=== PATIENT | female | born 1945 | race Caucasian/White ===

== ENCOUNTER 2017-03-11 14:17 | Inpatient (IN) | payer OTHER ==
[~2017-03-11] VITALS: Ht 167.6 cm; Wt 108.4 kg
--- NOTE | ~2017-03-11 | HC ---
[facility] [address] CONSULTATION Name: EVER YANES Room #: 410-P ADM IN M.R.#: [id number] Admission: 03/11/17 Attend Phys: Steve Matias MD Discharge: Date of : 49 Report #: [id number] THIS REPORT FOR: //name// CC: Steve Valdez DATE OF SERVICE: 03/12/2017 CHIEF COMPLAINT: Left tibia and fibula fracture. HISTORY OF PRESENT ILLNESS: This independent 72-year-old female fell at home when she twisted awkwardly injuring the left leg. She sustained no other injuries. She had no loss of consciousness. X-rays here reveal evidence of a mildly comminuted fracture involving the proximal tibia and fibula. The primary fracture is relatively transverse in the metaphyseal region, but there is extension vertically up into the joint with minimal displacement. At the time of my evaluation, she is alert and oriented and reasonably comfortable with the left leg well supported in a splint. She denies any other areas of injury. She states the fall occurred when she simply became slightly dizzy and lost her balance. She did not lose consciousness. She has not had any other similar problems in the past. She has no other ongoing symptoms at this point. Objectively, she has good movement of the neck and back without discomfort. The upper extremities reveal good movement and strength in both the right and left arm without discomfort. There is no evidence of injury in the upper extremities. The right lower extremity reveals good movement at the hip, knee and ankle without discomfort. The left lower extremity is well supported in a long leg splint. There is discomfort about the knee and mid leg consistent with her tibia fracture. She seems to have a normal neurologic and vascular status. She denies any discomfort about the left hip. X-rays of the left femur and hip reveal no obvious fractures involving the hip nor the left femur. X-rays of the left tibia reveal a comminuted and displaced fracture of the tibia and fibula at the lower metaphyseal region. This extends proximally with a vertical fracture line, which extends up into the mid portion of the proximal tibia. There is very minimal displacement at the articular surface. I have had a lengthy discussion with the patient and reviewed treatment options including nonsurgical management with cast protection or surgical repair with either plate and screw fixation or intramedullary mark. The primary transverse fracture in the lower metaphyseal region might be manageable with a mark fixation; however, I am concerned with the nondisplaced comminution extending vertically all the way up to the joint, although it is not displaced at this point, I think mark placement would stress this area significantly and might result in fracture displacement and loss of fixation. Consequently, I think the [address] [address] CONSULTATION Name: EVER YANES Room #: 410-P [facility] IN M.R.#: [id number] Admission: 03/11/17 Attend Phys: Steve Matias MD Discharge: Date of : 49 Report #: [id number] better option would be a proximal locking fixation plate, which would allow secure fixation of the proximal tibia and also fixation across the fracture site. We have discussed the potential risks and benefits. She seems to understand well and wishes to go ahead with the surgery. Pending medical clearance and OR availability, I think we may be able to proceed on 03/13. We will press ahead with that plan for ORIF left tibia fracture on 03/13. <ELECTRONICALLY SIGNED> By: Rell Bowles MD 03/13/17 0719 1014 1231 Rell Bowles MD /nt
--- NOTE | ~2017-03-11 | O ---
[facility] [place] [address] [place] [address] OPERATIVE REPORT Name: EVER YANES Room #: 410-P ADM IN M.R.#: [id number] Admission: 03/11/17 Attend Phys: Steve Matias MD Discharge: Date of : 49 Report #: [id number] THIS REPORT FOR: //name// CC: Steve Mcclainon Courtney DATE OF SERVICE: 03/13/2017 PREOPERATIVE DIAGNOSIS: Left proximal tibia fracture. POSTOPERATIVE DIAGNOSIS: Left proximal tibia fracture. PROCEDURE: Open reduction internal fixation of left proximal tibia fracture. SURGEON: Rell Bowles MD INDICATIONS: This heavy deconditioned 72-year-old female fell at home, twisting the left leg awkwardly. This resulted in a fracture at the proximal third of the left tibia and fibula. The tibia fracture is mildly comminuted with a nondisplaced fracture line extending vertically, all the way up to the joint surface. Given this fracture pattern, I felt surgical repair with open reduction and plate fixation was most appropriate. I have discussed with the patient treatment options and risks and benefits. She understands well and wishes to go ahead with surgical repair. DESCRIPTION OF PROCEDURE: The patient was taken to the operating room where she was placed under general anesthesia. Prophylactic intravenous antibiotics were administered. The left knee and leg were meticulously prepped and draped and a thigh tourniquet inflated to 300 mmHg. An anterior longitudinal skin incision was made. This was carried along the medial aspect of the proximal tibia. The fracture was identified and found to be mildly comminuted and displaced. Alignment was improved, but there was too much comminution to achieve a fully stable interlocking reduction. Nevertheless, the reduction alignment appeared to be satisfactory. This was then secured with a 12-hole locking medial Synthes plate. This was positioned so that the proximal locking screws were in the upper tibia in the subchondral region. There was sufficient length to allow 5 holes below the fracture with good screw purchase. There was poor purchase in the region of the fracture due to comminution, but overall alignment stability seemed to be satisfactory when assessed with intraoperative C-arm. Given the degree of comminution and location of fracture, I feel bone healing may be slow. I elected to add 30 mL of cancellous bone graft, which was packed around posterolaterally and anteromedially at the fracture site. The tourniquet was deflated, good hemostasis was established. The tissues were closed using multiple layers of 0 Monocryl. The skin was closed with skin marine. A gently compressive Whiting roll dressing was then applied and supplemented with a knee [address] [address] OPERATIVE REPORT Name: ARICESTEBANEVER Room #: [facility] IN .R.#: [id number] Admission: 03/11/17 Attend Phys: Steve Matias MD Discharge: Date of : 49 Report #: [id number] immobilizer brace to protect the fracture in good position. The patient was then awakened and returned to recovery room in good condition. <ELECTRONICALLY SIGNED> By: Rell Bowles MD 03/14/17 0807 1219 1242 Rell Bowles MD /nt
--- NOTE | ~2017-03-11 | EKG ---
[place] [address] [facility] [place] [address] ELECTROCARDIOGRAM REPORT Name: EVER YANES [id number] Admission: 03/11/17 Attend Phys: Discharge: Date of : 49 Report #: [id number] THIS REPORT FOR: //name// [facility] ED Test Date: 2017-03-11 Test Time: 14:59:05 Pat Name: EVER YANES Department: Room: Gender: F [employer] Supervisor: ROHIT : 1945 Requested By: Jodi Umana Order Number: [id number] MD: Mauricio Glynn Measurements Intervals Matthews Rate: 58 P: 48 MT: 178 QRS: 12 QRSD: 118 T: 90 QT: 419 QTc: 412 Interpretive Statements Sinus rhythm LVH with secondary repolarization abnormality No previous ECG available for comparison Electronically Signed On 03-11-2017 15:24:25 CDT by Mauricio Glynn [email or web address] <ELECTRONICALLY SIGNED> By: Mauricio Glynn MD 03/11/17 1524 1459 1459 Mauricio Glynn MD /BINTA
--- NOTE | ~2017-03-11 | H ---
[facility] [place] [address] [place] [address] HISTORY AND PHYSICAL Name: EVER YANES Room #: 170-1 ADM IN M.R.#: [id number] Admission: 03/11/17 Attend Phys: Steve Matias MD Discharge: Date of : 49 Report #: [id number] THIS REPORT FOR: //name// CC: Steve Valdez DATE OF SERVICE: 03/11/2017 REASON FOR PRESENTATION: Status post fall. HISTORY OF PRESENT ILLNESS: A 72-year-old with past medical history of hypertension and hypothyroidism who was trying to get to her fridge. She felt dizzy after that, left lower extremity buckled and she landed on her left hip. Immediately after that she was not able to ambulate and she started to have left lower extremity pain with inability to move her left lower extremity. She had her phone in her hand. She called 911 and was transferred to the emergency room where she was found to have a left proximal tibial and fibula fracture. No cardiac symptoms preceding the event. No neurological symptoms preceding the event. She told me that she has talked with her primary care physicians about some postural hypotension symptoms in the past. No repeated falls. She lives by herself. PAST MEDICAL HISTORY: 1. Anxiety. 2. Depression. 3. Hypertension. 4. Hypothyroidism. ALLERGIES: SULFA. SOCIAL HISTORY: No drug or alcohol abuse. 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 MEDICATIONS: 1. Levothyroxine 150 mcg daily. 2. Clonazepam daily. 3. Paroxetine 40 mg daily. 4. Valsartan/hydrochlorothiazide daily. FAMILY HISTORY: Brother has bad heart. REVIEW OF SYSTEMS: CONSTITUTIONAL: No fever or chills. CARDIOVASCULAR: No chest pain or palpitation. PULMONARY: No cough or hemoptysis. GASTROINTESTINAL: No nausea or vomiting. [facility] [address] [place] [address] HISTORY AND PHYSICAL Name: EVER YANES Room #: 170-1 ADM IN [facility]#: [id number] Admission: 03/11/17 Attend Phys: Steve Matias MD Discharge: Date of : 49 Report #: [id number] GENITOURINARY: No frequency, no urgency. SKIN: No rash or ulcerations. MUSCULOSKELETAL: As per the history of present illness. NEUROLOGICAL: No numbness. No weakness. PHYSICAL EXAMINATION: GENERAL: Alert, oriented, in no apparent distress. VITAL SIGNS: Pulse ox 98, blood pressure 116/65, temperature 36.9, respiratory rate 16. GENERAL: No acute distress. HEAD AND NECK: No jugular venous distention, no bruit, no thyromegaly. CHEST: Clear to auscultation bilaterally with no added sounds. Symmetrical chest expansion. CARDIOVASCULAR: Regular with no rub detected. No clubbing or cyanosis. ABDOMEN: Soft, nontender with no hepatosplenomegaly. EXTREMITIES: Splinter is applied on the left lower extremity. There is a large area of ecchymosis distal to the knee. Neurovascular bundle distal to the injury is intact. NEUROLOGICAL: No goes deficits. LABORATORY DATA: Still pending. IMAGING: Reviewed. She had a proximal tibial and fibular fracture. ASSESSMENT, IMPRESSION AND PLAN: 1. Left tibia and fibula fracture, status post fall. 2. Hypothyroidism. 3. Hypertension. 4. Anxiety disorder. 5. Depression. 6. Admission. 7. Routine care of an orthopedic patient. 8. Resume blood pressure medications. 9. Resume thyroid medications. 10. Start deep venous thrombosis prophylaxis. 11. Start proton pump inhibitor. 12. Pain control. 13. Orthopedic consultations. 14. We will continue to follow along. By: 1538 1552 Steve Matias MD /nt
[~2017-03-11 14:17] MED LIST: CLONAZEPAM; NORCO 5-325 TA1 EACH PO; PAXIL10 MG PO; SYNTHROID
[2017-03-11 14:19] VITALS: BP 116/65
[2017-03-11 15:51] VITALS: BP 116/65
[2017-03-11 15:58] LABS: ABSOLUTE NEUTROPHILS 4.8 thou/uL (1.4-8.2); BASOPHILS 0.5 % (0.0-2.0); EOSINOPHILS 0.4 % (0.0-3.0); HEMATOCRIT 36.9 % (37.0-47.0); HEMOGLOBIN 12.4 gm/dL (12.0-15.0); LYMPHOCYTES 13.3 % (24.0-44.0); MCHC 33.5 g/dL (28.0-37.0); MCV 86.6 fL (80.0-100.0); MONOCYTES 10.3 % (1.0-8.0); PLATELET COUNT 172 thou/uL (150-400); POLYS 75.5 % (36.0-66.0); RBC 4.27 mil/uL (4.20-5.00); WBC 6.4 thou/uL (4.0-11.0)
[2017-03-11 15:59] LABS: MANUAL DIFF NO
[2017-03-11 16:06] LABS: CALCIUM 8.9 mg/dL (8.5-10.1); CREATININE 1.3 mg/dL (0.6-1.0); POTASSIUM 3.6 mmol/L (3.5-5.1)
[2017-03-11 16:10] LABS: PROTIME 10.4 Seconds (9.3-11.4)
[2017-03-11 16:13] LABS: ALBUMIN 3.4 g/dL (3.4-5.0); TOTAL BILIRUBIN 0.5 mg/dL (<0.1-1.0); TOTAL PROTEIN 6.6 g/dL (6.4-8.2)
[2017-03-11 16:21] VITALS: BP 114/61
[2017-03-11 16:38] VITALS: BP 135/68
[2017-03-11 20:00] VITALS: BP 153/71
[2017-03-12 08:16] VITALS: BP 120/60
[2017-03-12 16:52] VITALS: BP 137/74
[2017-03-12 17:03] VITALS: BP 95/47
[2017-03-12 19:37] VITALS: BP 110/49
[2017-03-12 19:59] VITALS: BP 89/36
[2017-03-13] VITALS (10 sets, daily range): BP systolic 108–151; BP diastolic 44–80
[2017-03-13 07:01] LABS: HEMATOCRIT 31.5 % (37.0-47.0); HEMOGLOBIN 10.6 gm/dL (12.0-15.0); MCH 29.3 pg (26.0-34.0); MCHC 33.7 g/dL (28.0-37.0); MCV 86.8 fL (80.0-100.0); RBC 3.63 mil/uL (4.20-5.00); RDW 14.1 % (10.5-14.5); WBC 7.8 thou/uL (4.0-11.0)
[2017-03-13 07:11] LABS: ALBUMIN 2.9 g/dL (3.4-5.0); CREATININE 1.5 mg/dL (0.6-1.0); POTASSIUM 3.5 mmol/L (3.5-5.1); TOTAL BILIRUBIN 0.5 mg/dL (<0.1-1.0); TOTAL PROTEIN 5.8 g/dL (6.4-8.2)
[2017-03-14 06:13] VITALS: BP 141/56
[2017-03-14 06:24] LABS: HEMATOCRIT 28.5 % (37.0-47.0); HEMOGLOBIN 9.6 gm/dL (12.0-15.0)
[2017-03-14 06:44] LABS: POTASSIUM 3.6 mmol/L (3.5-5.1)
[2017-03-14 08:00] VITALS: BP 139/38
[2017-03-14 19:11] VITALS: BP 117/46
[2017-03-15 04:00] VITALS: BP 112/44
[2017-03-15 06:12] LABS: ABSOLUTE NEUTROPHILS 5.1 thou/uL (1.4-8.2); BASOPHILS 0.3 % (0.0-2.0); EOSINOPHILS 0.3 % (0.0-3.0); HEMATOCRIT 27.5 % (37.0-47.0); HEMOGLOBIN 9.4 gm/dL (12.0-15.0); LYMPHOCYTES 21.3 % (24.0-44.0); MCH 29.4 pg (26.0-34.0); MCV 86.3 fL (80.0-100.0); MONOCYTES 11.5 % (1.0-8.0); PLATELET COUNT 179 thou/uL (150-400); POLYS 66.6 % (36.0-66.0); RBC 3.19 mil/uL (4.20-5.00); WBC 7.7 thou/uL (4.0-11.0)
[2017-03-15 06:15] LABS: MANUAL DIFF NO
[2017-03-15 06:26] LABS: CALCIUM 8.1 mg/dL (8.5-10.1); POTASSIUM 3.5 mmol/L (3.5-5.1)
[2017-03-15 08:00] VITALS: BP 121/58
[2017-03-15 16:00] VITALS: BP 106/38
[2017-03-15] MEDS ORDERED: NORCO 5-325 TA1 EACH PO (16:10)
== END 2017-03-15 18:49 | DRG 492 ==
LOC: ER 14:17 → 4N 15:27 → EROBS 15:27 → 4N 16:37
PROVIDERS: Family Medicine; Hospitalist; Orthopaedic Surgery; Physician Assistant
PROC: 0QSH04Z Reposition Left Tibia with Internal Fixation Device, Open Approach (ICD-10-PCS; principal; 2017-03-13)
DX: S82.102A Unspecified fracture of upper end of left tibia, initial encounter for closed fracture (principal); E43 Unspecified severe protein-calorie malnutrition; S82.402A Unspecified fracture of shaft of left fibula, initial encounter for closed fracture; I10 Essential (primary) hypertension; E03.9 Hypothyroidism, unspecified; F32.9 Major depressive disorder, single episode, unspecified; F41.9 Anxiety disorder, unspecified; W18.39XA Other fall on same level, initial encounter; Z79.899 Other long term (current) drug therapy; Y93.89 Activity, other specified; Y92.098 Other place in other non-institutional residence as the place of occurrence of the external cause; Y99.8 Other external cause status; Z88.2 Allergy status to sulfonamides; Z82.49 Family history of ischemic heart disease and other diseases of the circulatory system
CPT/HCPCS: 10790; 50010; 50101; 50341; 50342; 50386; 51131; 51412; 51439; 55430; 56525; 56667; 57091; 62110; 62900; 70005

== ENCOUNTER → 2017-05-16 | Outpatient (CLI) | payer OTHER | LOC: HYPER 06:47 | DX: L89.620 Pressure ulcer of left heel, unstageable (principal); I10 Essential (primary) hypertension; E03.9 Hypothyroidism, unspecified; L30.1 Dyshidrosis [pompholyx]; G47.30 Sleep apnea, unspecified; F41.9 Anxiety disorder, unspecified; F32.9 Major depressive disorder, single episode, unspecified; E66.01 Morbid (severe) obesity due to excess calories; Z68.37 Body mass index [BMI] 37.0-37.9, adult ==